=== PATIENT | female | born 1965 | race Two or more races ===

== ENCOUNTER 2019-11-22 02:03 | Emergency (ER) | payer OTHER ==
[2019-11-22 02:09] VITALS: BMI 43.5
--- NOTE | 2019-11-22 02:20 | PDOC ---
Attending Attestation - Resident Resident Name: Janak Koo - ED Attending Attestation I have performed the following: I have examined & evaluated the patient, The case was reviewed & discussed with the resident, I agree w/resident's findings & plan - HPI HPI: 11/22/19 03:42 Pt comes with cough and HTN. States that she has been taking meds for her postnasal drip since Fri; since that time her BP is elevated despite her complainace with her norvasc. She has no other complaints. She has never been here before. - Physicial Exam PE: 11/22/19 03:43 Normal exam. Pt continues to have a post nasal drip and a cough productive of white sputum Afebrile. heart RRR lungs cta B abd soft NT ND +BS no C/C/E of legs. - Medical Decision Making 11/22/19 03:45 diovan given to the patient for her BP control. SHe will be dicharged with the same if all labs are normal. 11/22/19 03:45 CBC normal 11/22/19 04:05 Labs are normal and pt is ready to go home Heart Score/ECG Review - ECG Intrepretation Rhythm: Regular Rhythm - Austin Austin: Normal - P and SC Delta Wave(s) Present: No WPW: No - QRS Poor R Wave Progression: No Q Wave Present: No - ST and T Early Repolarization: No Non Specific ST-T Wave changes: No Flattened T Waves: No Prolonged Q-T Interval: No - ECG Impressions Normal ECG: Yes Non-specific ST Elevation: No Ischemic Changes: No Bradycardia: No Torsades aliyah Pointes: No
[2019-11-22] MEDS ORDERED: VALSARTAN 40 MG TABLET (FP) PO ONE (02:26)
[2019-11-22] MEDS ORDERED: VALSARTAN 80 MG TABLET (UD) ONE (02:38)
--- NOTE | 2019-11-22 02:51 | PDOC ---
History of Present Illness - General Chief Complaint: Blood Pressure Problem Stated Complaint: HIGH BP Time Seen by Provider: 11/22/19 02:17 History Source: Patient Exam Limitations: No Limitations - History of Present Illness Initial Comments: 54F PMH HTN (norvasc), SAH s/p clips/shunt 2014 presenting with elevated home BPs (SBP 160s, 170s). Normally BPs 120s/70s well controlled on norvasc. Pt has had sinusitis sx for the past week; went to see ENT on 11/19 and prescribed affrin, steroids, and augmentin. Endorses facial fullness. Denies headache, lightheadedness, visual changes, numbness, tingling, focal weakness. Past History - Past Medical History Allergies/Adverse Reactions: Allergies Allergy/AdvReac Type Severity Reaction Status Date / Time No Known Allergies Allergy Verified 11/22/19 02:08 Home Medications: Ambulatory Orders Aspirin [Ecotrin] 81 mg PO DAILY 11/22/19 Valsartan [Diovan] 40 mg PO DAILY #30 tablet 11/22/19 - Psycho Social/Smoking Cessation Hx Smoking History: Never smoked Hx Alcohol Use: No Drug/Substance Use Hx: No Review of Systems - Review of Systems Able to Perform ROS?: Yes Comments:: CONSTITUTIONAL: Denies F / C HEENT: Endorses congestion. Denies headache, changes in vision / hearing, diplopia, blurry vision RESP: endorses cough. Denies SOB CARD: Denies chest pain, palpitations GI: Denies N / V / D, abdominal pain, bloody stool, inability to tolerate PO : Denies dysuria SKIN: Denies rashes NEURO: Denies numbness, tingling, weakness MSK: Denies back pain *Physical Exam - Vital Signs Last Vital Signs Temp Pulse Resp BP Pulse Ox 98.3 F 78 20 195/94 H 99 11/22/19 02:06 11/22/19 02:06 11/22/19 02:06 11/22/19 02:06 11/22/19 02:06 - Physical Exam GEN: Well appearing, NAD, comfortable. AAOx3. HEENT: NC/AT, CN II-XII intact, EOMI, PERRL. No facial asymmetry. Moist mucous membranes. Normal voice. Supple neck w/ FROM. CV: S1/S2, RRR, no m/r/g LUNG: CTAB, no wheezes, crackles, rales, rhonchi. GI: Soft, ndnt, +BS, no guarding, no rebound. No masses. MSK: No LE edema. No obvious deformities of all extremities. SKIN: Warm, dry, no rashes appreciated. PSYCH: Normal mood and affect. NEURO: Moving all extremities well. symmetric sensation. 5/5 UE LE strength. ED Treatment Course - LABORATORY CBC & Chemistry Diagram: 11/22/19 02:58 11/22/19 02:58 Medical Decision Making - Medical Decision Making 11/22/19 02:43 54F PMH HTN, SAH presenting with elevated BP readings in setting of new meds ( affrin, steroids, augmentin) for sinusitis. ASx, neurologically intact. BPs elevated on Triage. Unlikely SAH given hx and exam. Eval for renal dz. - CBC, CMP - EKG - Patient is well versed with her medical treatments and appears compliant with medications Discharge - Discharge Information Problems reviewed: Yes Clinical Impression/Diagnosis: Hypertension Condition: Stable Disposition: HOME - Additional Discharge Information Prescriptions: Valsartan [Diovan] 40 mg PO DAILY #30 tablet - Follow up/Referral - Patient Discharge Instructions - Post Discharge Activity
[2019-11-22 03:21] LABS: BASO % 0.8 % (0-2.0); EOS % 0.1 % (0-4.5); HEMATOCRIT 42.8 % (32.4-45.2); HEMOGLOBIN 13.6 GM/dL (10.7-15.3); LYMPH % 26.2 % (8-40); MCHC 31.8 g/dl (32.0-36.0); MEAN CELL VOLUME 81.7 fl (80-96); MEAN PLT VOLUME 8.4 fl (7.5-11.1); MONO % 3.7 % (3.8-10.2); NEUT % 69.2 % (42.8-82.8); PLATELET COUNT 335 K/MM3 (134-434); RBC 5.24 M/mm3 (3.60-5.2); RDW 15.4 % (11.6-15.6); WHITE BLOOD COUNT 8.9 K/mm3 (4.0-10.0)
[2019-11-22 03:47] LABS: ALBUMIN 3.8 g/dl (3.4-5.0); BILIRUBIN,TOTAL 0.3 mg/dL (0.2-1); BLOOD UREA NITROGEN 18.1 mg/dL (7-18); CALCIUM 9.2 mg/dL (8.5-10.1); CREATININE 0.9 mg/dL (0.55-1.3); POTASSIUM 4.3 mmol/L (3.5-5.1)
[2019-11-22 03:54] VITALS: BP 138/81; PULSE 64; TEMP 97.9
--- NOTE | 2019-11-22 09:56 | EKG ---
Test Reason : Blood Pressure : / mmHG Vent. Rate : 074 BPM Atrial Rate : 074 BPM P-R Int : 144 ms QRS Dur : 100 ms QT Int : 400 ms P-R-T Axes : 073 -13 035 degrees QTc Int : 444 ms NORMAL SINUS RHYTHM NORMAL ECG NO PREVIOUS ECGS AVAILABLE Confirmed by Bethany Cheung ([id number]) on 11/22/2019 9:56:09 AM Referred By: Confirmed By:Bethany Cheung
== END 2019-11-22 04:34 | disposition home or self-care (01) ==
LOC: JER 02:03
DX: I10 Essential (primary) hypertension (principal)
CPT/HCPCS: 36415; 80053; 84484; 85025; 93005; 93010; 99284-25